=== PATIENT | female | born 1980 | race Caucasian/White ===

== ENCOUNTER 2019-11-06 20:16 | Inpatient (IN) | payer BC, OTHER ==
[~2019-11-06 20:16] MED LIST: Bupivacaine 0.25% HCL 30 ML VIAL ONE
[2019-11-06 20:47] VITALS: BMI 29.9
[2019-11-06] MEDS ORDERED: hydrALAZINE 20 MG/ML VIAL SLOW IVP PRN (21:17)
[2019-11-06] MEDS ORDERED: Promethazine HCl 25 MG/ML VIAL IM PRN (21:17)
[2019-11-06] MEDS ORDERED: NS / Oxytocin 40 units/1000ml 1,000 ML IV PRN (21:17)
[2019-11-06] MEDS ORDERED: Butorphanol Tartrate 1 MG/ML VIAL SLOW IVP PRN (21:17)
[2019-11-06] MEDS ORDERED: Ondansetron PF 4 MG/2 ML Vial IVP PRN (21:17)
[2019-11-06] MEDS ORDERED: Lidocaine 1% (PF) 30 ML VIAL SC PRN (21:17)
[2019-11-06] MEDS ORDERED: Ibuprofen 800 MG TAB PO PRN (21:17)
[2019-11-06] MEDS ORDERED: Penicillin G Potassium 5 MILL.UNITS in Sodium Chloride 0.9% 100 ML IVPB SCH (21:45)
--- NOTE | 2019-11-06 22:33 | HP ---
TIME OF EVALUATION: Roughly 2130 to 2140 hours. This is a patient of Dr. Troncoso. CHIEF COMPLAINT: Possible contractions, and the patient lives about 30 minutes away. HISTORY OF PRESENT ILLNESS: In brief, this is a 38-year-old, G5, P3, AB1, who is at 36 weeks and 4 days by stated LMP and EDC. She states that she was seen today in the office with Dr. Troncoso, who checked her cervix. She was 3-4 cm then. After that exam, she started complaining of increased contractions in the lower pelvis, about every 2-3 minutes, but she denies rupture of membranes, vaginal bleeding, or other concerns. She has good movement and she has no fevers. She has no sick contacts. Contractions are stated, by RN first interview, as lower abdominal and then some at the fundus. REVIEW OF SYSTEMS: Complete review of systems was checked and is otherwise negative unless specified in the HPI. Specifically, she has no headaches, right upper quadrant pain, nausea, vomiting, visual changes, fever, chills, or sick contacts, and she denies COVID contact per RN screening. PAST MEDICAL HISTORY: She has a history of anxiety, for which she is well controlled without medication. She also has a history of Earl thyroiditis and that is well controlled. MEDICATION: Synthroid (Synthroid variety). PAST SURGICAL HISTORY: Noncontributory/negative. FAMILY HISTORY: Negative for related concerns. SOCIAL HISTORY: Negative for alcohol, tobacco, or drug use. ALLERGIES: CECLOR, WHICH SHE STATES WAS A CHILDHOOD ALLERGY, BUT DENIES ANAPHYLAXIS. SHE ALSO HAS A HISTORY TO HYDROCODONE, WHICH THE NURSE SAYS MAKES HER "SICK." PHYSICAL EXAMINATION: VITAL SIGNS: Blood pressure initially is 169/99 and then repeat 15 minutes later was 141/90. She is afebrile with a temperature of 98.7, pulse is 97, respirations are 18, and her O2 saturation on room air is normal at 99%. GENERAL: She is in no acute distress. She is sitting in the bed with her mask on. ABDOMEN: Gravid. Per RN exam, cervix is 3-4 cm dilated, 70% effaced, -3 station, posterior and there is no evidence of vaginal bleeding or leakage of fluid. There are no vulvovaginal lesions. Please note that I did not perform a vaginal exam as the nurse did and did not perform a repeat in order to prevent patient discomfort. MONITOR/DIAGNOSTIC STUDIES: The heart tracing was reviewed and baseline is around 140s with moderate variability and accelerations. It is reactive/category 1. The tocodynamometer has contractions that are irregular, but they are present initially, picking up about every 2 to 3 minutes. ASSESSMENT: This is a G5, P3, who is advanced maternal age at 38 in the late period, 36 weeks and 4 days, with early labor/latent phase. As the patient lives 30 minutes away and has some initial hypertensive reads, I decided to keep the patient for overnight observation, as I suspect she may change her cervix. I did tell the patient that if she does not change overnight, it is possible to release her as long as her blood pressures are not severe until 37 weeks. This will be decided upon by Dr. Troncoso, who will resume care after this admission. PLAN: 1. Admit to Labor and Delivery for observation. 2. If blood pressures become severe or the patient gets symptomatic from -induced hypertension, then we will need to induce labor. 3. Magnesium sulfate for severe -induced hypertension criteria, of which there is none at this time. 4. She is GBS positive, so I have ordered penicillin. Ceclor allergy does not appear to be an issue at this time. 5. We will not augment labor at this time as she may be doing it by herself and we do not want to commit her to delivery unless necessary in the absence of severe -induced hypertension criteria. 6. Nurse is aware of plan and reviewed with them as well. Job ID: [id number]
[2019-11-06] MEDS: Lactated Ringer's 1,000 ML IV SCH (22:55)
[2019-11-06 23:35] LABS: Hemoglobin 12.8 g/dL (12.0-16.0); Mean Corpuscular HGB CONC 33.7 g/dL (32.0-36.0); Mean Corpuscular Hemoglobin 30.7 pg (27.0-31.0); Mean Corpuscular Volume 91.2 fL (78.0-98.0); Mean Platelet Volume 9.1 fL (7.4-10.4); Platelet Count 203 thou/uL (130-400); RBC Distribution Width 11.6 % (11.5-14.5); Red Blood Cell (RBC) Count 4.15 mill/uL (4.20-5.40)
[2019-11-07 00:02] LABS: ALT (SGPT) 15 U/L (8-55); AST (SGOT) 24 U/L (5-34); Albumin 3.5 g/dL (3.5-5.0); Alkaline Phosphatase 122 U/L (40-110); Anion Gap 18 mmol/L (10-20); BUN (Urea Nitrogen) 11 mg/dL (7.0-18.7); Bilirubin, Total 0.2 mg/dL (0.2-1.2); Calc. Creatinine Clearance 140 mL/min (70-130); Calcium 8.3 mg/dL (7.8-10.44); Carbon Dioxide 18 mmol/L (22-29); Chloride 103 mmol/L (98-107); Estimated GFR-MDRD Greater than 90; Globulin 2.8 g/dL (2.4-3.5); Glucose 76 mg/dL (70-105); Protein, Total 6.3 g/dL (6.0-8.3); Sodium 135 mmol/L (136-145)
[2019-11-07 00:13] LABS: Syphilis Antibody Nonreactive (Nonreactive); Syphilis Antibody Index 0.03 S/CO (<1.00 Non-Reactive)
[2019-11-07] MEDS: Lactated Ringer's 1,000 ML IV SCH ×3 (00:15→10:13)
[2019-11-07 01:22] LABS: HBSAg Index 0.12 S/CO (0-0.99); HIV (1/2) Antibody/Antigen Non-Reactive (NonReactive); HIV 1/2 INDEX 0.28 S/CO (<1.00); Hep B Surf Ag Non-Reactive S/CO (NonReactive)
[2019-11-07] MEDS ORDERED: Acetaminophen 500 MG TAB PO SCH (04:00)
[2019-11-07] MEDS: Penicillin G 2.5 MILL.units 2.5 MILL.UNITS in Premix Bag 1 BAG IVPB SCH ×3 (04:17→12:11)
[2019-11-07] MEDS ORDERED: Fentanyl 4 mcg/Bup 0.1% Cadd 100 ML ONE (07:27)
[2019-11-07] MEDS ORDERED: Lidocaine 1% (PF) 30 ML VIAL ONE (08:07)
[2019-11-07] MEDS ORDERED: NS / Oxytocin 40 units/1000ml 1,000 ML ONE (08:07)
[2019-11-07] MEDS ORDERED: Fentanyl 100 MCG/2 ML VIAL ONE (08:56)
[2019-11-07] MEDS ORDERED: Fentanyl 100 MCG/2 ML VIAL EPIDURAL ONE (09:10)
[2019-11-07] MEDS ORDERED: Lactated Ringer's 500 ML IV PRN (10:03)
[2019-11-07] MEDS ORDERED: Naloxone HCl 0.4 mg/ml Vial IVP PRN ×2 (10:03)
[2019-11-07] MEDS ORDERED: Acetaminophen 325 MG TAB PO PRN (10:03)
[2019-11-07] MEDS ORDERED: Promethazine HCl 25 MG/ML VIAL IM PRN (10:03)
[2019-11-07] MEDS ORDERED: EPHEDRINE 25 MG/5 ML SYRINGE SLOW IVP PRN (10:03)
[2019-11-07] MEDS ORDERED: Ondansetron PF 4 MG/2 ML Vial IVP PRN ×2 (10:03→13:53)
[2019-11-07] MEDS ORDERED: diphenhydrAMINE 50 MG/ML VIAL IVP PRN (10:03)
[2019-11-07] MEDS ORDERED: Communication Order-Pharmacy FS SCH (10:15)
[2019-11-07] MEDS ORDERED: Fentanyl 4 mcg/Bupivacaine 0.1% Cassette 100 ML EPIDURAL SCH (10:15)
[2019-11-07] MEDS ORDERED: NS w/ Oxytocin 10 units 500 ML ONE (11:35)
[2019-11-07] MEDS ORDERED: NS w/ Oxytocin 10 units 500 ML IVPB SCH (12:45)
[2019-11-07] MEDS ORDERED: Misoprostol 200 MCG TAB VAG PRN (13:53)
[2019-11-07] MEDS ORDERED: Milk Of Magnesia 30 ML UDCUP PO PRN (13:53)
[2019-11-07] MEDS ORDERED: Zolpidem Tartrate 5 MG TAB PO PRN (13:53)
[2019-11-07] MEDS ORDERED: diphenhydrAMINE 25 MG CAP PO PRN (13:53)
[2019-11-07] MEDS ORDERED: hydrALAZINE 20 MG/ML VIAL SLOW IVP PRN (13:53)
[2019-11-07] MEDS ORDERED: Lanolin Ointment 7 GM TUBE TOP PRN (13:53)
[2019-11-07] MEDS ORDERED: Bisacodyl 10 MG SUPP PR PRN (13:53)
[2019-11-07] MEDS ORDERED: Preparation H Ointment 28 GM TUBE PR PRN (13:53)
[2019-11-07] MEDS ORDERED: Benzocaine-Menthol 82.5 ML CAN TOP PRN (13:53)
[2019-11-07] MEDS ORDERED: traMADol HCl 50 MG TAB PO PRN (13:56)
[2019-11-07] MEDS ORDERED: NS / Oxytocin 40 units/1000ml 1,000 ML IV SCH (14:00)
[2019-11-07] MEDS: Ferrous Sulfate 325 MG TAB PO SCH (18:14)
[2019-11-07] MEDS: Ibuprofen 800 MG TAB PO SCH ×2 (18:14→21:43)
[2019-11-07] MEDS ORDERED: Acetaminophen 500 MG TAB PO PRN (18:44)
[2019-11-07] MEDS: Docusate Calcium (SURFAK) 240 MG CAP PO SCH (21:42)
[2019-11-08] MEDS: Penicillin G 2.5 MILL.units 2.5 MILL.UNITS in Premix Bag 1 BAG IVPB SCH (00:48)
[2019-11-08] MEDS: Ibuprofen 800 MG TAB PO SCH ×2 (05:26→14:30)
[2019-11-08 05:48] LABS: Hemoglobin 11.7 g/dL (12.0-16.0); Mean Corpuscular HGB CONC 31.5 g/dL (32.0-36.0); Mean Corpuscular Hemoglobin 29.1 pg (27.0-31.0); Mean Corpuscular Volume 92.4 fL (78.0-98.0); Mean Platelet Volume 9.1 fL (7.4-10.4); Platelet Count 166 thou/uL (130-400); RBC Distribution Width 11.7 % (11.5-14.5); Red Blood Cell (RBC) Count 4.01 mill/uL (4.20-5.40); White Blood Cell (WBC) Count 10.1 thou/uL (4.8-10.8)
[2019-11-08 07:47] VITALS: TEMP 98.1
[2019-11-08] MEDS: Docusate Calcium (SURFAK) 240 MG CAP PO SCH (08:33)
[2019-11-08] MEDS: Ferrous Sulfate 325 MG TAB PO SCH ×2 (08:34→16:53)
[2019-11-08] MEDS ORDERED: Prenatal Vitamin 1 TAB PO SCH (09:00)
[2019-11-08 11:49] VITALS: BP 119/70
[2019-11-08] MEDS ORDERED: Adacel (T-DAP) 0.5 ML SYRINGE IM ONE (13:53)
== END 2019-11-08 17:45 | disposition home or self-care (01) | DRG 807 ==
LOC: L&D/OP 20:16 → L&D 22:55 → 3SW 11-07 17:23
PROVIDERS: ADMIT Obstetrics & Gynecology; ATTEND Obstetrics & Gynecology
PROC: 10E0XZZ Delivery of Products of Conception, External Approach (ICD-10-PCS; principal; 2019-11-07)
PROC: 10907ZC Drainage of Amniotic Fluid, Therapeutic from Products of Conception, Via Natural or Artificial Opening (ICD-10-PCS; 2019-11-07)
DX: O60.14X0 Preterm labor third trimester with preterm delivery third trimester, not applicable or unspecified (principal); Z37.0 Single live birth; Z3A.36 36 weeks gestation of pregnancy; O99.344 Other mental disorders complicating childbirth; O99.284 Endocrine, nutritional and metabolic diseases complicating childbirth; F41.9 Anxiety disorder, unspecified; E06.3 Autoimmune thyroiditis; O99.824 Streptococcus B carrier state complicating childbirth; Z88.8 Allergy status to other drugs, medicaments and biological substances; Z79.890 Hormone replacement therapy
CPT/HCPCS: 36415; 51701; 80053; 85027; 86780; 86850; 86900; 86901; 87340; 87389; J2001; J2540; J2590; J3010; J3490; S0020